=== PATIENT | female | born 1995 | race Caucasian/White ===

== ENCOUNTER 2018-03-07 05:37 | Observation (INO) | payer SELFPAY ==
[~2018-03-07] VITALS: Ht 153 cm; Wt 71.8 kg
[2018-03-07 05:55] VITALS: BP 112/72
[2018-03-07] MEDS ORDERED: PREN1TAB80 PO (06:18)
== END 2018-03-07 14:00 | disposition home or self-care (01) ==
LOC: 4S 05:37
PROVIDERS: ADMIT Obstetrics & Gynecology; ATTEND Obstetrics & Gynecology
DX: O62.9 Abnormality of forces of labor, unspecified (principal); O26.893 Other specified pregnancy related conditions, third trimester; R10.30 Lower abdominal pain, unspecified; M54.5 Low back pain; Z3A.37 37 weeks gestation of pregnancy
CPT/HCPCS: 59025; 80307 ×8; G0378

== ENCOUNTER 2018-04-01 10:55 | Observation (INO) | payer SELFPAY ==
[~2018-04-01 10:55] MED LIST: PREN1TAB80 PO
[2018-04-01 12:13] VITALS: BP 118/77
== END 2018-04-01 13:10 | disposition home or self-care (01) ==
LOC: EDBD → 4S 10:55
PROVIDERS: ADMIT Obstetrics & Gynecology; ATTEND Obstetrics & Gynecology
DX: O62.9 Abnormality of forces of labor, unspecified (principal); O48.0 Post-term pregnancy; O26.893 Other specified pregnancy related conditions, third trimester; R10.30 Lower abdominal pain, unspecified; Z3A.40 40 weeks gestation of pregnancy
CPT/HCPCS: 59025; G0378